=== PATIENT | female | born 1950 | race Caucasian/White ===

== ENCOUNTER 2021-02-27 09:18 | Day surgery (SDC) | payer MEDICARE, BC ==
[~2021-02-27 09:18] MED LIST: Lactated Ringers 1,000 ML IV SCH
[2021-02-27] MEDS ORDERED: Propofol 200 MG/20 ML SDV ONE ×2 (11:13→11:37)
[2021-02-27] MEDS ORDERED: fentaNYL 100 MCG/2 ML SDV ONE (11:14)
[2021-02-27] MEDS ORDERED: Ondansetron 4 MG/2 ML SDV ONE (11:15)
[2021-02-27] MEDS ORDERED: Dexamethasone 10 MG/ML SDV ONE (11:16)
--- NOTE | 2021-02-28 10:51 | OR ---
PREOPERATIVE DIAGNOSIS: Screening colonoscopy. POSTOPERATIVE DIAGNOSIS: Screening colonoscopy. PROCEDURE PERFORMED: Screening colonoscopy. COMPLICATION: None. SPECIMENS: None. ESTIMATED BLOOD LOSS: 0. PROCEDURE IN DETAIL: This was done in the endoscopy suite. Sedation was given per Anesthesia. She was placed in left lateral position. First, a rectal exam was done and was normal. Scope was introduced into the rectum and slowly advanced to the rectum, sigmoid, descending, transverse, and ascending colon until the cecum was reached. Upon reaching the cecum, the scope was slowly withdrawn looking at all mucosal surfaces on the way out. No mucosal abnormalities, lesions, or polyps were noted. FINAL DIAGNOSIS: Normal colonoscopy. BKD: 02/27/2021 11:53:23 MODL: 02/27/2021 15:06:02 /[id number]
== END 2021-02-27 12:52 | disposition home or self-care (01) ==
LOC: VM.SDS 09:18
PROVIDERS: ATTEND Surgery
DX: Z12.11 Encounter for screening for malignant neoplasm of colon (principal); I10 Essential (primary) hypertension; E78.00 Pure hypercholesterolemia, unspecified; J44.9 Chronic obstructive pulmonary disease, unspecified; M47.816 Spondylosis without myelopathy or radiculopathy, lumbar region; M70.62 Trochanteric bursitis, left hip; M65.4 Radial styloid tenosynovitis [de Quervain]; I83.811 Varicose veins of right lower extremity with pain; Z79.899 Other long term (current) drug therapy; Z87.891 Personal history of nicotine dependence; Z88.0 Allergy status to penicillin; Z88.8 Allergy status to other drugs, medicaments and biological substances; Z88.2 Allergy status to sulfonamides; Z88.5 Allergy status to narcotic agent; Z98.890 Other specified postprocedural states
CPT/HCPCS: 00812; J1100; J2405; J2704; J3010; J7120

== ENCOUNTER 2021-08-22 22:52 | Emergency (ER) | payer MEDICARE, BC ==
[2021-08-22] MEDS ORDERED: Sodium Chloride 0.9% 10 ML Syringe FLUSH PRN (23:13)
[2021-08-22] MEDS ORDERED: Lactated Ringers 1,000 ML IV SCH (23:45)
[2021-08-22] MEDS: Sodium Chloride 0.9% 1,000 ML IV SCH (23:52)
[2021-08-22 23:57] LABS: PTT,PARTIAL THROMBOPLSTIN TIME 29.3 SEC (20.5-30.9)
[2021-08-23 00:05] LABS: CHLORIDE,CL 86 mmol/L (98-107)
[2021-08-23 00:08] LABS: ANION GAP 15.1 mmol/L (5-15); SODIUM,NA 122 mmol/L (136-145)
[2021-08-23 00:13] LABS: CORONAVIRUS COVID-19 NAA NEGATIVE (NEGATIVE); RESPIRATORY SYNCYTIAL VIR NAA NEGATIVE (NEGATIVE)
[2021-08-23] MEDS: cefTRIAXone 2 GM Vial IVPUSH ONE (00:32)
[2021-08-23] MEDS: Iopamidol 755 Mg/ML 100 ML Bottle IVPUSH ONE (01:05)
[2021-08-23] MEDS: Magnesium Sulfate/Water 4 GM in Premix Bag 1 BAG IV ONE (02:08)
[2021-08-23] MEDS: Metoprolol Tartrate 5 MG/5 ML SDV IVPUSH ONE (02:10)
[2021-08-23 02:11] VITALS: BP 158/78; PULSE 86
[2021-08-23] MEDS: Sodium Chloride 0.9% 1,000 ML IV SCH (02:30)
== END 2021-08-23 02:59 | disposition short-term general hospital (02) ==
LOC: VM.ED 22:52
DX: N39.0 Urinary tract infection, site not specified (principal); E87.1 Hypo-osmolality and hyponatremia; I48.91 Unspecified atrial fibrillation; E83.42 Hypomagnesemia; E78.00 Pure hypercholesterolemia, unspecified; I10 Essential (primary) hypertension; Z88.5 Allergy status to narcotic agent; Z88.8 Allergy status to other drugs, medicaments and biological substances; Z88.0 Allergy status to penicillin; Z88.2 Allergy status to sulfonamides; Z79.899 Other long term (current) drug therapy; Z20.822 Contact with and (suspected) exposure to COVID-19
CPT/HCPCS: 0241U; 36415; 70450; 71045; 71275; 80053; 80307; 81001; 83605; 83735; 83880; 84100; 84443; 84484; 85025; 85379; 85610; 85730; 86140; 87040; 87086; 93005; 93010; 96365; 96375; 99285; 99285-25; J0696; J3475; J3490; J7030; Q9967